=== PATIENT | female | born 1970 ===

== ENCOUNTER → 2018-05-28 | Day surgery (SDC) | payer OTHER ==
[~2018-05-28] MED LIST: ADVAIR 100-501 EACH IH; AMBIEN10 MG PO; CLONAZEPAM2 MG PO; INTESTINEX680 MG PO; LAMISIL250 MG PO; LEXAPRO20 MG PO; VITAMIN B-1250 MCG PO; [UNRECOGNIZED DRUG - OTHER]; [UNRECOGNIZED DRUG - OTHER] PO
== END | disposition home or self-care (01) ==
LOC: AMB-ENDOS 11:53
DX: D12.0 Benign neoplasm of cecum (principal)